=== PATIENT | male | born 1950 | race Caucasian/White ===

== ENCOUNTER 2017-06-21 09:00 | Day surgery (SDC) | payer OTHER ==
[2017-06-20 10:01] VITALS: BMI 20.5
[2017-06-21] MEDS ORDERED: LIDOCAINE HCL 2% (20ML MULTI-DOSE VIAL) NR ONE (12:18)
[2017-06-21] MEDS ORDERED: PROPOFOL 20 ML ONE ×2 (12:18)
[2017-06-21 12:21] VITALS: TEMP 97.7
[2017-06-21 13:25] VITALS: BP 152/80; PULSE 61
--- NOTE | 2017-06-22 16:32 | PATH ---
Surgical Pathology Report Patient Name: MARIAH MADDOX [facility]. Rec. #: [id number] /Age/Gender: 1950 (Age: 67) / M Account: [id number] Location: [facility]-ENDOSCOPY Taken: 06/21/2017 Received: 06/21/2017 Reported: 06/22/2017 Physicians: Sandro Foote M.D. Specimen(s) Received A: RECTAL POLYP B: ASCENDING COLON POLYP C: DISTAL SIGMOID POLYP Clinical History Preoperative diagnosis: Screening Postoperative diagnosis: Colon polyps Final Diagnosis A. RECTUM, POLYP, BIOPSY: TUBULOVILLOUS ADENOMA. B. ASCENDING COLON, POLYP, BIOPSY: TUBULAR ADENOMA. C. DISTAL SIGMOID COLON, POLYP, BIOPSY: TUBULOVILLOUS ADENOMA. NO HIGH GRADE DYSPLASIA IDENTIFIED. Electronically Signed Merry Gill M.D. Gross Description A. Received in formalin, labeled "rectal polyp" is a cali, polypoid portion of soft tissue measuring 0.7 cm. in greatest dimension. The specimen is submitted in toto in one cassette. B. Received in formalin, labeled "ascending colon polyp" are 2 cali, irregular to polypoid portions of soft tissue measuring 0.3 and 0.6 cm. in greatest dimension. The specimens are submitted in toto in one cassette. C. Received in formalin labeled "distal sigmoid polyp," are 2 cali, polypoid portions of soft tissue measuring 0.5 x 0.5 x 0.3 cm and 2.1 x 1.8 x 0.6 cm. The base of the larger polyp is inked blue and the specimen is bisected. The specimen is entirely submitted in 3 cassettes as follows: 1-smaller polyp in toto; 2-3-one whole bisected polyp. 06/21/2017 saudi06/21/2017
== END 2017-06-21 13:15 | disposition home or self-care (01) ==
LOC: JASU-ENDO 09:00 → JASU-SURG 09:00 → JASU-ENDO 13:15
PROVIDERS: ATTEND Internal Medicine Gastroenterology
PROC: 0DBN8ZX Excision of Sigmoid Colon, Via Natural or Artificial Opening Endoscopic, Diagnostic (ICD-10-PCS; 2017-06-21)
PROC: 0DBK8ZX Excision of Ascending Colon, Via Natural or Artificial Opening Endoscopic, Diagnostic (ICD-10-PCS; 2017-06-21)
PROC: 3E0H8GC Introduction of Other Therapeutic Substance into Lower GI, Via Natural or Artificial Opening Endoscopic (ICD-10-PCS; 2017-06-21)
PROC: 0DBP8ZX Excision of Rectum, Via Natural or Artificial Opening Endoscopic, Diagnostic (ICD-10-PCS; principal; 2017-06-21 10:30)
DX: Z12.11 Encounter for screening for malignant neoplasm of colon (principal); K62.1 Rectal polyp; D12.2 Benign neoplasm of ascending colon; D12.5 Benign neoplasm of sigmoid colon; K57.30 Diverticulosis of large intestine without perforation or abscess without bleeding
CPT/HCPCS: 88305-TC